=== PATIENT | female | born 2000 | race Hispanic/Latino ===

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

== ENCOUNTER 2020-05-21 02:15 | Outpatient (CLI) | payer BC ==
[2020-05-21 02:55] VITALS: BP 114/70
== END 2020-05-21 03:29 | disposition home or self-care (01) ==
LOC: TRG 02:15 → APU 02:16 → TRG 03:29
PROVIDERS: ATTEND Obstetrics & Gynecology
DX: O42.913 Preterm premature rupture of membranes, unspecified as to length of time between rupture and onset of labor, third trimester (principal); Z3A.40 40 weeks gestation of pregnancy
CPT/HCPCS: 59025